=== PATIENT | male | born 1980 | race Asian ===

== ENCOUNTER 2020-03-04 15:56 | Emergency (ER) | payer OTHER ==
[~2020-03-04] VITALS: Ht 167.6 cm; Wt 99.8 kg
[2020-03-04 16:10] VITALS: Ht 167.6 cm; Wt 99.8 kg
[2020-03-04 18:48] VITALS: BP 118/74
== END 2020-03-04 18:48 | disposition home or self-care (01) ==
LOC: ED 15:56
DX: S01.311A Laceration without foreign body of right ear, initial encounter (principal); S09.8XXA Other specified injuries of head, initial encounter; I10 Essential (primary) hypertension; Y04.8XXA Assault by other bodily force, initial encounter; Y93.89 Activity, other specified; Y92.89 Other specified places as the place of occurrence of the external cause; Y99.8 Other external cause status
CPT/HCPCS: 90715; J2001; J2405; J7030